=== PATIENT | male | born 1990 | race Two or more races ===

== ENCOUNTER 2018-11-14 19:26 | Emergency (ER) | payer OTHER ==
[~2018-11-14] VITALS: Ht 177.8 cm; Wt 86.2 kg
--- NOTE | 2018-11-14 19:55 | NUR ---
[facility] & [employer] C/O HEAD INJUJRY WITH MULTIPLE SCALP LAC FROM UNK OBJECT. UNK KO. PT CONFUSED. NOTED L EAR BLEEDING. IN BED, LABS DRAWN.
[2018-11-14] MEDS ORDERED: IV NS 0.9% 1,000 ML BAG IV ONE ×2 (20:00→20:30)
[2018-11-14 20:04] LABS: BASOPHILS # (AUTO) 0.1 /CMM (0.0-0.2); BASOPHILS % (AUTO) 1.2 % (0.0-2.0); EOSINOPHILS % (AUTO) 2.4 % (0.0-6.0); HEMATOCRIT 40 % (39-51); HEMOGLOBIN 13.8 g/dL (13.5-17.5); LYMPHOCYTES # (AUTO) 1.3 /CMM (0.8-4.8); LYMPHOCYTES % (AUTO) 10.4 % (20.0-44.0); MEAN CORPUSCULAR HGB CONC 35 g/dl (31.0-36.0); MEAN CORPUSCULAR VOLUME 87 fL (80-96); MONOCYTES # (AUTO) 0.5 /CMM (0.1-1.30); MONOCYTES % (AUTO) 4.2 % (2.0-12.0); NEUTROPHILS # (AUTO) 10.5 /CMM (1.8-8.9); NEUTROPHILS % (AUTO) 81.8 % (43.0-81.0); PLATELET COUNT (AUTO) 307 /CMM (150-450); RED BLOOD CELL COUNT(AUTO) 4.56 MIL/uL (4.5-6.0); WHITE BLOOD COUNT (AUTO) 12.8 K/uL (4.3-11.0)
[2018-11-14] MEDS ORDERED: FENTANYL PF 100MCG/2ML AMPUL ONE (20:13)
[2018-11-14 20:14] LABS: CALCIUM, SERUM 8.8 mg/dL (8.5-10.1); CARBON DIOXIDE 21 mmol/L (21-32); CHLORIDE 107 mmol/L (98-107); CREATININE 1.3 mg/dL (0.6-1.3); GLUCOSE 103 mg/dL (74-106); POTASSIUM 3.2 mmol/L (3.5-5.1); SODIUM SERUM 145 mmol/L (136-145); UREA NITROGEN, BLOOD 19 mg/dL (7-18)
[2018-11-14 20:16] LABS: ALCOHOL, BLOOD 156 mg/dL (0-0)
--- NOTE | 2018-11-14 20:17 | NUR ---
PT TAKEN TO CT
[2018-11-14] MEDS ORDERED: FENTANYL PF 100MCG/2ML AMPUL IV ONE (20:30)
--- NOTE | 2018-11-14 20:59 | NUR ---
Francine santiago in [facility] - 11/14/18 at 2107 by [facility] CALLED [facility]. FAXED OVER FACESHEET, CLINICALS, EKG
--- NOTE | 2018-11-14 21:02 | NUR ---
Francine santiago in [facility] - 11/14/18 at 2105 by [facility] CENSUS CLERK NAME IS SHAW. SASHA REINOSO
[2018-11-14 21:05] LABS: APPEARANCE,URINE Clear (CLEAR); BILIRUBIN,URINE SMALL (NEGATIVE); BLOOD, URINE Trace-intact Ery/uL (NEGATIVE); COLOR,URINE Yellow (YELLOW); KETONES,URINE Negative (NEGATIVE); LEUKOCYTE ESTERASE ,URINE Negative (NEGATIVE); NITRITE, URINE Negative (NEGATIVE); PH,URINE 5.5 (5.0-8.0); PROTEIN,URINE 30 mg/dl (NEGATIVE); UGLUCOSE Negative (NEGATIVE); UROBILINOGEN,URINE 0.2 EU/dL (0.2)
[2018-11-14 21:06] LABS: BACTERIA,URINE Few /HPF (None Seen); RBC,URINE 0-2 /HPF (0-2); SQUAMOUS EPITHELIAL CELL,UR Few /HPF (None Seen); WBC,URINE 0-2 /HPF (0-3)
[2018-11-14 21:07] LABS: HYALINE CASTS, URINE Few /LPF (None Seen)
[2018-11-14] MEDS ORDERED: LEVETIRACETAM (500MG) 500 MG in IV NS 0.9% 100 ML IV SCH (21:30)
--- NOTE | 2018-11-14 21:30 | NUR ---
ADDENDUM: Intravenous End Time Documentation: Keppra 500 milligram IVPB: start time:2129 ; end time:2229 : IV site: LAC # 20 Port # 1
[2018-11-14] MEDS ORDERED: ONDANSETRON HCL/PF 4 MG/2 ML VIAL ONE (22:16)
[2018-11-14] MEDS ORDERED: ONDANSETRON HCL/PF - ER 4 MG/2 ML VIAL IV ONE (22:30)
[2018-11-14 22:50] LABS: BILIRUBIN,DIRECT 0.1 mg/dL (0.0-0.2); BILIRUBIN,TOTAL 0.5 mg/dL (0.2-1.0)
--- NOTE | 2018-11-14 23:19 | NUR ---
PT GOING TO [facility] 4415-2 REPORT [phone] EXT [phone]
--- NOTE | 2018-11-14 23:24 | NUR ---
CALLED [facility]. ETA 2.5 HOURS
--- NOTE | 2018-11-14 23:36 | NUR ---
[facility] ETA 0100. AUTH # [id number]
--- NOTE | 2018-11-14 23:57 | NUR ---
REPORT GIVEN TO JAYA EMERY AT [facility]
[2018-11-15 00:44] VITALS: BP 114/71
--- NOTE | 2018-11-15 01:30 | NUR ---
dea porras new eta [phone]
--- NOTE | 2018-11-15 02:10 | NUR ---
REPORT GIVEN TO [facility], PT TRANSFERED TO [facility]
== END 2018-11-15 02:20 | disposition short-term general hospital (02) ==
LOC: ER 19:28
DX: S02.0XXA Fracture of vault of skull, initial encounter for closed fracture (principal); S01.01XA Laceration without foreign body of scalp, initial encounter; S06.330A Contusion and laceration of cerebrum, unspecified, without loss of consciousness, initial encounter; R51 Headache; W21.11XA Struck by baseball bat, initial encounter; Y93.89 Activity, other specified; Y92.89 Other specified places as the place of occurrence of the external cause; Y99.8 Other external cause status
CPT/HCPCS: 36415; 70450; 71045; 72125; 80048; 80305; 80307; 81001; 82247; 82248; 83605 ×2; 85025; 85730; 96365; 96375; 99285; A6403; J1953; J2405; J3010; J7030 ×4; 81000-TC; G0480